=== PATIENT | female | born 1970 | race American Indian/Alaskan Native ===

== ENCOUNTER 2019-07-02 09:08 | Day surgery (SDC) | payer MEDICAID ==
--- NOTE | 2019-07-01 17:21 | Short Stay Summary ---
Short Stay Documentation Date of service: 07/02/19 Narrative H&P: 49y/o with a history of placement of the Essure device for contraception. The patient reports she has had chronic pelvic pain as a result of the device. Attempted to manage her symptoms medically without success. Patient has been reassessed/reevaluated/re-examined. H&P has been reviewed. No interval changes. - History Principal diagnosis: Chronic pelvic pain Past Medical History: hypothyroidism, other (fibromyalgia) Past Surgical History: Other (tubal occlusion (Essure)) Social history: - Allergies and Medications Current Medications: Allergies Sulfa (Sulfonamide Antibiotics) Allergy (Verified 06/26/19 15:01) Itching, hives, SOB Home Medications Medication Instructions Recorded Confirmed Last Taken Type Levothyroxine [Synthroid] 112 mcg PO DAILY 06/26/19 06/26/19 Unknown History Zolpidem [Ambien] 10 mg PO QHS 06/26/19 06/26/19 Unknown History - Physical exam General appearance: no acute distress Integumentary: no rash HEENT: Atraumatic Lungs: Clear to auscultation Breasts: deferred Heart: Regular rate Gastrointestinal: normal Female Genitourinary: deferred Rectal Exam: deferred Extremities: no ischemia Neurological: Normal gait - Brief post op/procedure progress note Date of procedure: 07/02/19 Pre-op diagnosis: pelvic pain secondary to the Essure device Post-op diagnosis: same Procedure: Laparoscopy Bilateral salpingectomy Anesthesia: GETA Surgeon: JOCE BROOKS Estimated blood loss: minimal Pathology: list (bilateral fallopian tubes and Essure device) Specimen disposition: to lab Condition: stable - Hospital course Hospital course: The patient was admitted the day of surgery and underwent a bilateral salping ectomy. Please see operative note for details of surgery. Postoperative course was uneventful. - Disposition Condition at discharge: Good Disposition: DC-01 TO HOME OR SELFCARE Short Stay Discharge Plan Activity: other (pelvic rest for 1 week) Diet: regular Additional Instructions: Follow-up is not required Follow-up is needed Prescriptions: Ibuprofen [Motrin] 800 mg PO Q8HR PRN #60 tablet PRN Reason: Pain, Mild (1-3) HYDROcodone/APAP 5-325 [[place] 5/325] 1 each PO Q6HR PRN #20 tablet PRN Reason: Pain
[2019-07-02] MEDS ORDERED: LACTATED RINGERS 1,000 ML ONE (10:24)
[2019-07-02] MEDS ORDERED: LACTATED RINGERS 1,000 ML IV SCH (11:00)
--- NOTE | 2019-07-02 11:56 | Anesthesia Day of Surgery ---
Anesthesia Day of Surgery - Day of Surgery Patient Examined: Yes Patient H&P Reviewed: Yes Patient is NPO: Yes
--- NOTE | 2019-07-02 11:57 | Anesthesia Consultation ---
Anesthesia Consult and Med Hx Date of service: 07/02/19 - Airway Anesthetic Teeth Evaluation: Good ROM Head & Neck: Adequate Mental/Hyoid Distance: Adequate Mallampati Class: Class II Intubation Access Assessment: Good - Pre-Operative Health Status ASA Pre-Surgery Classification: ASA2 Proposed Anesthetic Plan: General - Central Nervous System Hx Psychiatric Problems: Yes - Endocrine Hx Hypothyroidism: Yes - Other Systems Hx Cancer: No
[2019-07-02] MEDS ORDERED: fentaNYL 100 MCG/2 ML INJ IV PRN (11:58)
[2019-07-02] MEDS ORDERED: ONDANSETRON 4 MG/2 ML INJ IV PRN (11:58)
[2019-07-02] MEDS ORDERED: MIDAZOLAM 2 MG/2 ML INJ IV NR (12:00)
[2019-07-02] MEDS ORDERED: fentaNYL 100 MCG/2 ML INJ IV ONE (15:00)
[2019-07-02] MEDS ORDERED: BUPIVACAINE/PF (0.5%) 5 MG/1 ML 10 ML VIAL INFILTRATI ONE ×2 (15:01→15:36)
[2019-07-02] MEDS ORDERED: PROPOFOL 200 MG/20 ML VIAL IV ONE ×2 (15:04→15:33)
[2019-07-02] MEDS ORDERED: fentaNYL 250 MCG/5 ML INJ ONE (15:04)
[2019-07-02] MEDS ORDERED: GLYCOPYRROLATE 0.4 MG/2 ML INJ ONE (15:05)
[2019-07-02] MEDS ORDERED: dexAMETHasone 20 MG/5 ML VIAL ONE (15:05)
[2019-07-02] MEDS ORDERED: SUCCINYLCHOLINE CHLORIDE 200 MG/10 ML INJ MDV ONE (15:05)
[2019-07-02] MEDS ORDERED: NEOSTIGMINE 10MG/10 ML INJ MDV ONE (15:05)
[2019-07-02] MEDS ORDERED: ROCURONIUM 50 MG/5 ML INJ IV ONE (15:05)
[2019-07-02] MEDS ORDERED: LIDOCAINE MPF (2%) 20 MG/1 ML VIAL 5 ML ONE (15:05)
[2019-07-02] MEDS ORDERED: PHENYLEPHRINE/NS 1,000 MCG/10 ML SYRINGE (OR USE) IV ONE (15:05)
[2019-07-02] MEDS ORDERED: ONDANSETRON 4 MG/2 ML INJ ONE (15:05)
--- NOTE | 2019-07-02 16:12 | Operative Report ---
Operative Report Operative Report: Date of surgery: 07/02/2019 Preoperative diagnosis: Chronic pelvic pain secondary to the Essure device; undesired fertility Postoperative diagnosis: Same as above Procedure: Laparoscopy; bilateral salpingectomy; extraction of Essure device Surgeon: Dena Decker M.D. Anesthesia: General endotracheal anesthesia Estimated blood loss: Normal Findings: Normal uterus tubes and ovaries Indication: 49-year-old with a history of worsening chronic pelvic pain since placement of her Essure device for sterilization. Procedure: The patient was taken to the operating room and given general endotracheal anesthesia without complication. The patient is prepped and draped in a normal sterile fashion. A bivalve speculum was placed in the patient's vagina and a single-tooth tenaculum was placed on the anterior lip of the cervix .A uterine acorn manipulator was placed, and the bivalve speculum was then removed. Attention was then turned to the patient's abdomen where a 5 mm infraumbilical skin incision was then made. A Veress needle was placed and peritoneal entry was verified water-filled syringe. Insufflation of the peritoneal cavity was performed with CO2 gas. A 5 mm trocar was placed and the laparoscope was then inserted. The patient was then placed in Trendelenburg. A 7 mm suprapubic skin incision was then made. Under direct visualization a 7 mm trocar was then placed. An additional 5 mm left lateral trocar was also placed. General survey of the patient's abdomen revealed normal uterus tubes and ovaries. The fallopian tube was then followed out to the fimbriated end. The right fallopian tube was grasp. The mesosalpinx was coagulated and transected. The tube was then excised with the LigaSure device. Essure was seen protruding from the cornua. The Essure was grasped and removed. This was performed on the contralateral side as well. The 5 mm and 7 mm trocars were then removed. The pneumoperitoneum was then released. The 5 mm trocar laparoscope was then removed. The skin incisions were then closed with 4-0 Monocryl. The incisions were injected with quarter percent Marcaine. Dressings were applied to the incision. The vaginal instruments were then removed atraumatically. Then successfully extubated and taken to the recovery room. All sponge laps and needle counts were correct x2.
[2019-07-02] MEDS ORDERED: IBUPROFEN 800 MG TAB PO PRN (16:44)
[2019-07-02] MEDS ORDERED: KETOROLAC 30 MG/1 ML INJ IV ONE (16:50)
[2019-07-02 17:21] VITALS: BP 139/85
--- NOTE | 2019-07-02 18:01 | Post Anesthesia Evaluation ---
- Post Anesthesia Evaluation Patient Participated: Yes Airway Patent: Yes Stable Respiratory Function: Yes Nausea/Vomiting: No Temp > 96.8F: Yes Pain Manageable: Yes Adequeate Hydration: Yes Anesthesia Complications: No
== END 2019-07-02 18:00 | disposition home or self-care (01) ==
LOC: OR 09:08
PROVIDERS: ATTEND Obstetrics & Gynecology
DX: Z30.2 Encounter for sterilization (principal); R10.2 Pelvic and perineal pain; G89.29 Other chronic pain; M19.90 Unspecified osteoarthritis, unspecified site; E03.9 Hypothyroidism, unspecified; F41.9 Anxiety disorder, unspecified; Z98.890 Other specified postprocedural states; Z79.899 Other long term (current) drug therapy; Z88.2 Allergy status to sulfonamides
CPT/HCPCS: 58661; 81025; 88302; J0330; J1100; J1885; J2250; J2370; J2405; J2704; J2710; J3010; J7120